=== PATIENT | male | born 1985 | race Asian ===

== ENCOUNTER 2021-02-21 10:10 | Emergency (ER) | payer OTHER ==
[~2021-02-21] VITALS: Ht 175.3 cm; Wt 93.0 kg
[2021-02-21 10:37] VITALS: BP 129/60
[2021-02-21] MEDS ORDERED: IBUPROFEN 600600 M1 PO (11:46)
== END 2021-02-21 12:01 | disposition home or self-care (01) ==
LOC: M.ERS 10:10
DX: M79.672 Pain in left foot (principal); M79.89 Other specified soft tissue disorders